=== PATIENT | female | born 1995 ===

== ENCOUNTER 2016-07-09 20:54 | Emergency (ER) | payer SELFPAY ==
[2016-07-09 20:54] VITALS: BMI 21.2
[2016-07-09 21:34] VITALS: O2SAT 100
[2016-07-09] MEDS ORDERED: Sodium Chloride 0.9% 1,000 ML IV ONE (22:25)
[2016-07-09 23:02] LABS: BASO # 0.1 K/uL (0.0-0.2); BASO % 0.5 % (0.0-2.0); EOS # 0.1 K/uL (0.0-0.7); EOS % 0.8 % (0.0-4.0); HEMATOCRIT 40.3 % (34.0-47.0); LYMPH # 3.1 K/uL (1.0-4.3); LYMPH % 25.1 % (20.0-40.0); MEAN CORPUSCULAR HEMOGLOBIN 25.5 pg (27.0-31.0); MEAN CORPUSCULAR HGB CONC 32.3 g/dL (33.0-37.0); MEAN PLATELET VOLUME 8.4 fL (7.2-11.7); MONO # 0.7 K/uL (0.0-0.8); MONO % 5.6 % (0.0-10.0); RED CELL DISTRIBUTION WIDTH 13.9 % (11.5-14.5); WHITE BLOOD COUNT 12.3 K/uL (4.8-10.8)
[2016-07-09 23:05] LABS: RBC URINE 12 /hpf (0-3); URINE BACTERIA OCC (<OCC); URINE BILIRUBIN NEGATIVE (NEGATIVE); URINE BLOOD 1+ (NEGATIVE); URINE COLOR Yellow (YELLOW); URINE GLUCOSE (UA) NORMAL (Normal); URINE KETONE 1+ mg/dL (NEGATIVE); URINE LEUKOCYTE ESTERASE NEG Leu/uL (Negative); URINE PROTEIN NEGATIVE (NEGATIVE); WBC URINE 2 /hpf (0-5)
[2016-07-09 23:06] LABS: MEAN CELL VOLUME 78.9 fL (81.0-99.0)
[2016-07-09 23:08] LABS: CHLORIDE 99 mmol/L (98-107)
[2016-07-09 23:09] LABS: POTASSIUM 3.7 mmol/L (3.6-5.2); SODIUM 138 mmol/L (132-148)
[2016-07-09 23:11] LABS: AST/SGOT 23 U/L (14-36); BILIRUBIN,TOTAL 0.4 mg/dL (0.2-1.3); CARBON DIOXIDE 21 mmol/L (22-30); GFR AFRICAN-AMERICAN > 60
[2016-07-09 23:12] LABS: ALB/GLOB RATIO 1.4 (1.0-2.1); ALKALINE PHOSPHATASE 64 U/L (38-126); ALT/SGPT 27 U/L (9-52); BLOOD UREA NITROGEN 13 mg/dL (7-17); GLUCOSE,RANDOM 80 mg/dL (65-105); TOTAL PROTEIN 8.1 g/dL (6.3-8.3)
--- NOTE | 2016-07-10 02:57 | US ---
EXAM: US Pelvis Complete, Transabdominal. US Pelvis, Transvaginal. CLINICAL HISTORY: 21 years old, female; Signs and symptoms; Other: Bleeding; ; Additional info: Pain/bleeding, R/O ectopic TECHNIQUE: Real-time transabdominal and transvaginal pelvic ultrasound (complete) with image documentation. Transvaginal imaging was used for better evaluation of the endometrium and adnexa. EXAM DATE/TIME: 07/09/2016 11:05 PM COMPARISON: No relevant prior studies available. FINDINGS: Uterus: Measures 7.6 x 4.0 x 4.5 cm. No intrauterine gestation is seen. Endometrial stripe measures 1.3 cm in thickness, within normal limits, and does not appear significantly heterogeneous. Cervix appears closed. Right ovary: Within normal limits in appearance. Measures 2.7 x 2.1 x 2.2 cm. Flow seen in the right ovary on color and Doppler imaging. Left ovary: Measures 4.6 x 2.1 x 2.7 cm. Contains a 2.1 x 1.5 cm complex cystic lesion. This lesion has a thick wall, a crenulated appearance, and increased peripheral blood flow on color imaging. It most likely represents a corpus luteal cyst, given its appearance. Flow seen in the left ovary on color and Doppler imaging. Cul-de-sac: Tiny amount of free fluid is identified. IMPRESSION: No intrauterine gestation seen. Tiny amount of free fluid in the cul-de-sac. The patient's quantitative beta-hCG level is reportedly 353. Findings could represent a spontaneous or a not yet visible (less than 4 week) intrauterine gestation. Note that an ectopic gestation is not excluded entirely in this patient, however. Recommend clinical correlation and close clinical followup, including serial beta-hCG levels. See above for remaining findings.
--- NOTE | 2016-07-10 03:18 | C.PDOC ---
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 History/Exam Limitations: language barrier Onset/Duration Of Symptoms: Days (few) Current Symptoms Are (Timing): Still Present Severity: Moderate Location Of Pain/Discomfort: Epigastric, Suprapubic Quality Of Discomfort: Cramping, "Pain" Alleviating Factors: None Additional History Per: Prior Records Abnormal Vaginal Bleeding: Yes Past Medical History Reviewed: Historical Data, Nursing Documentation, Vital Signs Vital Signs: Last Vital Signs Temp 97.9 F 07/09/16 21:28 Pulse 78 07/09/16 21:28 Resp 18 07/09/16 21:28 BP 108/69 07/09/16 21:28 Pulse Ox 100 07/09/16 21:28 - Medical History PMH: No Chronic Diseases Surgical History: No Surg Hx Family History: States: Unknown Family Hx - Social History Hx Tobacco Use: No Hx Alcohol Use: No Hx Substance Use: Yes - Immunization History Hx Tetanus Toxoid Vaccination: No Hx Influenza Vaccination: No Hx Pneumococcal Vaccination: No Review Of Systems Except As Marked, All Systems Reviewed And Found Negative. Constitutional: Negative for: Fever, Weakness Cardiovascular: Negative for: Chest Pain Respiratory: Negative for: Shortness of Breath Gastrointestinal: Positive for: Abdominal Pain Genitourinary: Positive for: Vaginal Bleeding (spotting), Pelvic Pain. Negative for: Dysuria Musculoskeletal: Negative for: Neck Pain, Back Pain Skin: Negative for: Rash Neurological: Negative for: Weakness, Numbness, Seizures, Altered Mental Status Physical Exam - Physical Exam Appears: Non-toxic, No Acute Distress Skin: Normal Color, Warm, Dry, No Rash Head: Atraumatic, Normacephalic Eye(s): bilateral: PERRL, EOMI Neck: Normal ROM, Supple Cardiovascular: Rhythm Regular Respiratory: Normal Breath Sounds, No Accessory Muscle Use Gastrointestinal/Abdominal: Soft, Tenderness (mild epigastric and suprapubic), No Guarding, No Rebound Back: No CVA Tenderness Extremity: Normal ROM Neurological/Psych: Oriented x3, Normal Motor, Normal Sensation ED Course And Treatment - Laboratory Results Result Diagrams: 07/09/16 22:50 07/09/16 22:50 Urine POC: Positive O2 Sat by Pulse Oximetry: 100 Pulse Ox Interpretation: Normal - CT Scan/US Pelvic US Other Rad Studies (CT/US): Read By Radiologist, Radiology Report Reviewed CT/US Interpretation: IMPRESSION: No intrauterine gestation seen. . Tiny amount of free fluid in the cul-de-sac. . The patient's quantitative beta-hCG level is reportedly 353. . Findings could represent a spontaneous or a not yet visible (less. than 4 week) intrauterine gestation. Note that an ectopic gestation is not. excluded entirely in this patient, however. Recommend clinical correlation and. close clinical followup, including serial beta-hCG levels. . See above for remaining findings. Reassessment Condition: Improved Progress - Interventions Interventions:: Observation, Intravenous fluid - Medications Administered Oral: Acetaminophen Intravenous: Antiemetic, H-2 zohra - Data Reviewed Data Reviewed: Lab, Diagnostic imaging, Old records - Patient Status Patient status: Mostly improved - Continuity of Care Discussed patient case with:: Patient, ED Nurse - Patient Plan Patient Plan: Discharge, F/U with PCP Disposition Counseled Patient/Family Regarding: Studies Performed, Diagnosis, Need For Followup - Disposition Disposition: HOME/ ROUTINE Disposition Time: 03:18 Condition: IMPROVED Additional Instructions: Return to the ER in 2 days for a repeat hormone level in order to rule out an ectopic (a very dangerous condition). Return to the ER immediately if you develop dizziness, heavy bleeding, severe pain, worsening of symptoms or if you have any other concerns. Instructions: Abdominal Pain in (ED) Print Language: UZBEK - Clinical Impression Clinical Impression: Abdominal pain during
[2016-07-10 03:51] VITALS: BP 113/68; PULSE 72; RESP 20; TEMP 97.6
== END 2016-07-10 03:51 | disposition home or self-care (01) ==
LOC: C.ER 20:54
DX: O26.899 Other specified pregnancy related conditions, unspecified trimester (principal); R10.13 Epigastric pain; Z3A.00 Weeks of gestation of pregnancy not specified
CPT/HCPCS: 76830; 76856; 80053; 81001; 83690; 84702; 84703; 85025; 86850; 86900; 96361; 96374; 96375; 99284; J2765; J7040

== ENCOUNTER 2016-07-14 20:56 | Emergency (ER) | payer SELFPAY ==
[2016-07-14 20:56] VITALS: BMI 21.2
--- NOTE | 2016-07-14 23:59 | C.PDOC ---
History Of Present Illness 21 y/o female presents to the ED with complains of vaginal bleeding. Pt is 3 weeks . Was seen n ED for same 5 days ago, negative US and low beta- HCG. Pt was seen at clinic 2 days ago, still no detected on US. Pt seen again today at [facility] [place], [place] negative, no labs done. Pt denies and abominal pain , vomiting or any other complaints. Chief Complaint (Nursing): Female Genitourinary History Per: Patient History/Exam Limitations: no limitations Onset/Duration Of Symptoms: Days Current Symptoms Are (Timing): Still Present Quality Of Discomfort: denies: "Pain" Associated Symptoms: denies: Vomiting Alleviating Factors: None Recent travel outside of the [place]: No Abnormal Vaginal Bleeding: Yes : 2 Para: 1 Past Medical History Reviewed: Historical Data, Nursing Documentation, Vital Signs Vital Signs: Last Vital Signs Temp 97.3 F L 07/15/16 02:45 Pulse 82 07/15/16 02:45 Resp 16 07/15/16 02:45 BP 133/69 07/15/16 02:45 Pulse Ox 98 07/15/16 03:35 Family History: States: Unknown Family Hx - Social History Hx Tobacco Use: No Hx Alcohol Use: No Hx Substance Use: No - Immunization History Hx Tetanus Toxoid Vaccination: No Hx Influenza Vaccination: No Hx Pneumococcal Vaccination: No Review Of Systems Except As Marked, All Systems Reviewed And Found Negative. Constitutional: Negative for: Fever Gastrointestinal: Negative for: Vomiting, Abdominal Pain Genitourinary: Positive for: Vaginal Bleeding Physical Exam - Physical Exam Appears: Non-toxic, No Acute Distress Skin: Warm, Dry, No Rash Head: Atraumatic, Normacephalic Chest: Symmetrical Cardiovascular: Rhythm Regular Respiratory: Normal Breath Sounds, No Rales, No Rhonchi, No Wheezing Gastrointestinal/Abdominal: Normal Exam, Soft, No Tenderness Extremity: Bilateral: Atraumatic Neurological/Psych: Oriented x3, Normal Speech ED Course And Treatment O2 Sat by Pulse Oximetry: 98 (on room air) Pulse Ox Interpretation: Normal - CT Scan/US US transvag Other Rad Studies (CT/US): Read By Radiologist, Radiology Report Reviewed CT/US Interpretation: EXAM: US , Transvaginal. CLINICAL HISTORY: 21 years old, female; Signs and symptoms; Other: Vag bleeding; ; Additional info: Vaginal. bleed. TECHNIQUE: Real-time transvaginal obstetrical ultrasound of the maternal pelvis and a first trimester . with image documentation. Transvaginal imaging was used for better evaluation of the fetus and. adnexa. COMPARISON: PELVIS/TRANSVAG US 07/10/2016 2:05:15 AM. FINDINGS: Gestation: See below. Uterus/cervix: Two tiny cystic structures about endometrium, 0.1 cm in size. Closed cervix. Ovaries: RIGHT ovary: Normal. LEFT ovary: Probable corpus luteal cyst. No adnexal masses. Free fluid: Small free fluid within pelvis. IMPRESSION: 1. Tiny cystic structures about endometrium, nonspecific. Recommend short-term followup. 2. Incidental/non-acute findings are described above. Thank you for allowing us to participate in the care of your patient. Dictated and Authenticated by: Vernon Goldstein MD. 07/15/2016 3:02 AM Eastern Time ([place] & [place]). Addendum created by Vernon Goldstein MD on 07/15/2016 3:29 AM Eastern Time ([place] & [place]). FINDINGS: Uterus/cervix: Two tiny cystic structures about endometrium, 0.1 cm in size, not visualized on. previous examination. Closed cervix. IMPRESSION: 1. Tiny cystic structures about endometrium, new in interval, nonspecific. DDX: Early intrauterine. gestation, blighted ovum, ectopic . Recommend short-term followup. 2. Incidental/non-acute findings are described above. Initial Report created on 07/15/2016 3:02 AM Eastern Time ([place] & [place]) Medical Decision Making Medical Decision Making: Plan: repeat beta-HCG Disposition Counseled Patient/Family Regarding: Diagnosis - Disposition Referrals: [facility] at [facility] [place] [Outside] Disposition: HOME/ ROUTINE Disposition Time: 03:45 Condition: STABLE Instructions: (ED), Threatened Miscarriage (ED) - POA Present On Arrival: None - Clinical Impression Clinical Impression: Threatened , Bleeding in early - Scribe Statement The provider has reviewed the documentation as recorded by the Kurt Kirk Provider Attestation: All medical record entries made by the Dgibkamille were at my direction and personally dictated by me. I have reviewed the chart and agree that the record accurately reflects my personal performance of the history, physical exam, medical decision making, and the department course for this patient. I have also personally directed, reviewed, and agree with the discharge instructions and disposition.
--- NOTE | 2016-07-15 03:02 | US ---
EXAM: US , Transvaginal. CLINICAL HISTORY: 21 years old, female; Signs and symptoms; Other: Vag bleeding; ; Additional info: Vaginal bleed TECHNIQUE: Real-time transvaginal obstetrical ultrasound of the maternal pelvis and a first trimester with image documentation. Transvaginal imaging was used for better evaluation of the fetus and adnexa. COMPARISON: PELVIS/TRANSVAG US 07/10/2016 2:05:15 AM FINDINGS: Gestation: See below. Uterus/cervix: Two tiny cystic structures about endometrium, 0.1 cm in size. Closed cervix. Ovaries: RIGHT ovary: Normal. LEFT ovary: Probable corpus luteal cyst. No adnexal masses. Free fluid: Small free fluid within pelvis. IMPRESSION: 1. Tiny cystic structures about endometrium, nonspecific. Recommend short-term followup. 2. Incidental/non-acute findings are described above.
[2016-07-15 03:51] VITALS: BP 101/69; PULSE 66; RESP 17; TEMP 98; O2SAT 100
== END 2016-07-15 04:01 | disposition home or self-care (01) ==
LOC: C.ER 20:56
DX: O20.0 Threatened abortion (principal); Z3A.12 12 weeks gestation of pregnancy

== ENCOUNTER 2016-07-21 22:20 | Emergency (ER) | payer SELFPAY | END 2016-07-22 01:35 | disposition home or self-care (01) | LOC: C.ER 22:20 | DX: O20.0 Threatened abortion (principal); Z3A.01 Less than 8 weeks gestation of pregnancy ==

== ENCOUNTER 2016-07-23 17:56 | Emergency (ER) | payer SELFPAY ==
[2016-07-23 17:56] VITALS: BMI 21.2
[2016-07-23 18:05] VITALS: TEMP 98.3; O2SAT 99
--- NOTE | 2016-07-23 19:27 | C.PDOC ---
Time Seen by Provider: 07/23/16 19:27 Chief Complaint (Nursing): Medical Clearance Past Medical History Vital Signs: Last Vital Signs Temp 98.3 F 07/23/16 17:59 Pulse 73 07/23/16 17:59 Resp 20 07/23/16 17:59 BP 96/54 L 07/23/16 17:59 Pulse Ox 99 07/23/16 17:59 Family History: States: Unknown Family Hx - Social History Hx Tobacco Use: No Hx Alcohol Use: No Hx Substance Use: No - Immunization History Hx Tetanus Toxoid Vaccination: No Hx Influenza Vaccination: No Hx Pneumococcal Vaccination: No ED Course And Treatment O2 Sat by Pulse Oximetry: 99 Disposition Counseled Patient/Family Regarding: Studies Performed, Diagnosis - Disposition Disposition Time: 19:27
--- NOTE | 2016-07-23 19:27 | C.PDOC ---
History Of Present Illness 21 y/o female, , went to [facility] and could not hear heart and sent to ER for emergency ultrasound. Patient denies fever, chills, nausea, vomiting, vaginal bleeding. Time Seen by Provider: 07/23/16 19:27 Chief Complaint (Nursing): Medical Clearance History Per: Patient History/Exam Limitations: no limitations Onset/Duration Of Symptoms: Days Current Symptoms Are (Timing): Still Present Quality Of Discomfort: Cramping Associated Symptoms: denies: Fever, Chills, Nausea, Vomiting, Diarrhea Recent travel outside of the [place]: No Abnormal Vaginal Bleeding: No : 2 Para: 1 Miscarriage: 0 Past Medical History Reviewed: Historical Data, Nursing Documentation, Vital Signs Vital Signs: Last Vital Signs Temp 98.3 F 07/23/16 17:59 Pulse 73 07/23/16 17:59 Resp 20 07/23/16 17:59 BP 96/54 L 07/23/16 17:59 Pulse Ox 99 07/23/16 19:57 - Medical History PMH: No Chronic Diseases Family History: States: Unknown Family Hx - Social History Hx Tobacco Use: No Hx Alcohol Use: No Hx Substance Use: No - Immunization History Hx Tetanus Toxoid Vaccination: No Hx Influenza Vaccination: No Hx Pneumococcal Vaccination: No Review Of Systems Constitutional: Negative for: Fever, Chills Respiratory: Negative for: Cough, Shortness of Breath Gastrointestinal: Positive for: Abdominal Pain. Negative for: Nausea, Vomiting Genitourinary: Negative for: Vaginal Bleeding Physical Exam - Physical Exam Appears: Non-toxic, No Acute Distress Skin: Warm, Dry Oral Mucosa: Moist Chest: Symmetrical Cardiovascular: Rhythm Regular, No Murmur Respiratory: No Rales, No Rhonchi, No Wheezing Gastrointestinal/Abdominal: Soft, Tenderness (mild, suprapubic), No Distention, No Guarding, No Rebound Back: No CVA Tenderness Extremity: Normal ROM, Capillary Refill (< 2 sec. ) Neurological/Psych: Oriented x3, Normal Speech, Normal Cognition ED Course And Treatment - Laboratory Results Result Diagrams: 07/23/16 19:52 07/23/16 19:52 O2 Sat by Pulse Oximetry: 99 (RA) Pulse Ox Interpretation: Normal Progress Note: Labs, ultrasound, IVFs. Reevaluation Time: 20:44 Reassessment Condition: Improved Medical Decision Making Medical Decision Making: Upon provider reevaluation patient is feeling better, is medically stable, and requires no further treatment in the ED at this time. Patient will be discharged home . Counseling was provided and all questions were answered regarding diagnosis and need for follow up with Cris. There is agreement to discharge plan. Return if symptoms persist or worsen. Disposition Counseled Patient/Family Regarding: Studies Performed, Diagnosis, Need For Followup - Disposition Referrals: Anna Lynch MD [Medical Doctor] - Disposition: HOME/ ROUTINE Disposition Time: 19:27 Condition: FAIR Additional Instructions: Please recheck HCG in 5-7 days Instructions: (ED) - Clinical Impression Clinical Impression: Medical assessment, - Scribe Statement The provider has reviewed the documentation as recorded by the Kurt Avilez Provider Attestation: Provider Scribe Attestation: All medical record entries made by the Scribe were at my direction and personally dictated by me. I have reviewed the chart and agree that the record accurately reflects my personal performance of the history, physical exam, medical decision making, and the department course for this patient. I have also personally directed, reviewed, and agree with the discharge instructions and disposition.
[2016-07-23] MEDS ORDERED: Sodium Chloride 0.9% 1,000 ML IV ONE (19:28)
[2016-07-23] MEDS ORDERED: Sodium Chloride 0.9% 1,000 ML ONE (19:48)
[2016-07-23 20:02] LABS: BASO # 0.1 K/uL (0.0-0.2); BASO % 0.7 % (0.0-2.0); EOS # 0.1 K/uL (0.0-0.7); EOS % 1.3 % (0.0-4.0); HEMATOCRIT 37.5 % (34.0-47.0); LYMPH # 3.6 K/uL (1.0-4.3); LYMPH % 33.1 % (20.0-40.0); MEAN CELL VOLUME 78.2 fL (81.0-99.0); MEAN CORPUSCULAR HEMOGLOBIN 25.8 pg (27.0-31.0); MEAN CORPUSCULAR HGB CONC 32.9 g/dL (33.0-37.0); MEAN PLATELET VOLUME 8.6 fL (7.2-11.7); MONO # 0.7 K/uL (0.0-0.8); MONO % 6.9 % (0.0-10.0); WHITE BLOOD COUNT 10.7 K/uL (4.8-10.8)
[2016-07-23 20:08] LABS: INR 1.1
[2016-07-23 20:11] LABS: CHLORIDE 98 mmol/L (98-107); SODIUM 138 mmol/L (132-148)
[2016-07-23 20:12] LABS: POTASSIUM 3.8 mmol/L (3.6-5.2)
[2016-07-23 20:14] LABS: ALB/GLOB RATIO 1.6 (1.0-2.1); ALKALINE PHOSPHATASE 49 U/L (38-126); ALT/SGPT 24 U/L (9-52); AST/SGOT 26 U/L (14-36); BILIRUBIN,TOTAL 0.4 mg/dL (0.2-1.3); BLOOD UREA NITROGEN 9 mg/dL (7-17); CARBON DIOXIDE 24 mmol/L (22-30); GFR AFRICAN-AMERICAN > 60; GLUCOSE,RANDOM 90 mg/dL (65-105); TOTAL PROTEIN 7.3 g/dL (6.3-8.3)
[2016-07-23 20:15] LABS: CALCIUM 8.9 mg/dl (8.6-10.4)
[2016-07-23 20:16] LABS: RBC URINE < 1 /hpf (0-3); URINE BACTERIA RARE (<OCC); URINE BILIRUBIN NEGATIVE (NEGATIVE); URINE BLOOD NEGATIVE (NEGATIVE); URINE COLOR Yellow (YELLOW); URINE GLUCOSE (UA) NORMAL (Normal); URINE KETONE NEGATIVE (NEGATIVE); URINE LEUKOCYTE ESTERASE NEG Leu/uL (Negative); URINE PROTEIN NEGATIVE (NEGATIVE); URINE UROBILINOGEN NORMAL mg/dL (0.2-1.0); WBC URINE 1 /hpf (0-5)
--- NOTE | 2016-07-23 20:37 | US ---
EXAM: US , Transvaginal CLINICAL HISTORY: 21 years old, female; Pain; Pelvic pain; ; Additional info: Vag bleed; positive urine test; quantitative beta hCG level is pending Beta hCG 352.87 on 07/09/16 Beta hCG 1143.0 on 07/15/16 TECHNIQUE: Real-time transvaginal obstetrical ultrasound of the maternal pelvis and a first trimester with image documentation. Transvaginal imaging was used for better evaluation of the fetus and adnexa. EXAM DATE/TIME: 07/23/2016 7:28 PM COMPARISON: US - TRANSVAGINAL 07/15/2016 2:07:04 AM FINDINGS: Uterus: Uterus measures approximately 9 x 4 x 5 cm. Cervix measures approximately 3.5 cm in length. Endometrium measures approximately 10 mm in width. Right ovary: Right ovary measures approximately 3.21 x 1.54 x 2.97 cm. There are multiple small follicles. There is expected blood flow on Doppler imaging Left ovary: Left ovary measures approximate 4.2 x 1.88 x 2.70 cm. There are multiple small follicles. There is expected blood flow on Doppler imaging Adnexa: There are no adnexal masses. There is no free fluid. IMPRESSION: No intrauterine or ectopic gestation identified Correlation with beta hCG levels advised
[2016-07-23 20:55] VITALS: BP 105/65; PULSE 69; RESP 17
== END 2016-07-23 21:03 | disposition home or self-care (01) ==
LOC: C.ER 17:56
DX: O26.891 Other specified pregnancy related conditions, first trimester (principal); Z3A.00 Weeks of gestation of pregnancy not specified
CPT/HCPCS: 76830; 80053; 81001; 84702; 84703; 85025; 85610; 86850; 86900; 96360; 99283; J7040

== ENCOUNTER 2016-07-31 17:41 | Observation (INO) | payer SELFPAY ==
[2016-07-31 17:42] VITALS: BMI 21.2
--- NOTE | 2016-07-31 19:41 | C.PDOC ---
History Of Present Illness 21 year old female presents to the ED with complaints of passing a dark blood clot. She has had multiple visits for and vaginal bleeding. Patient was seen on 07/09/16 with various Beta HCG Quants including 352.87, 1143.00 (), 2991.50 (07/21/16), 2763.90 (07/23/16). Patient denies any pain, nausea , vomiting, or any further bleeding. Time Seen by Provider: 07/31/16 18:07 Chief Complaint (Nursing): Female Genitourinary History/Exam Limitations: no limitations Onset/Duration Of Symptoms: Hrs Associated Symptoms: denies: Fever, Chills Past Medical History Reviewed: Historical Data, Nursing Documentation, Vital Signs Vital Signs: Last Vital Signs Temp 98.2 F 07/31/16 21:18 Pulse 67 07/31/16 21:18 Resp 18 07/31/16 21:18 BP 104/64 07/31/16 21:18 Pulse Ox 99 07/31/16 21:18 - Medical History PMH: No Chronic Diseases Surgical History: No Surg Hx Family History: States: Unknown Family Hx - Social History Hx Tobacco Use: No Hx Alcohol Use: No Hx Substance Use: No Review Of Systems Constitutional: Negative for: Fever, Chills, Sweats Cardiovascular: Negative for: Chest Pain Respiratory: Negative for: Cough, Shortness of Breath Gastrointestinal: Negative for: Nausea, Vomiting, Abdominal Pain, Diarrhea Genitourinary: Positive for: Hematuria (passed a dark blood clot ) Physical Exam - Physical Exam Appears: Non-toxic, No Acute Distress Skin: Warm, Dry Chest: Symmetrical, No Deformity Cardiovascular: Rhythm Regular, No Murmur Respiratory: No Accessory Muscle Use, No Rales, No Rhonchi, No Wheezing Gastrointestinal/Abdominal: Soft, No Tenderness, No Distention, No Guarding Extremity: Normal ROM, No Pedal Edema Neurological/Psych: Oriented x3, Normal Speech, Normal Cognition ED Course And Treatment O2 Sat by Pulse Oximetry: 100 - CT Scan/US US TRANSVAGINAL NON-OB Other Rad Studies (CT/US): Interpreted By Me, Read By Radiologist CT/US Interpretation: IMPRESSION: No intrauterine . Complex structure within the left ovary, either representing corpus. luteum cyst or ectopic . Consider serial hCG follow-up and repeat ultrasound in one or 2 weeks for more definitive. assessment. Progress Note: Beta quant ordered Medical Decision Making Medical Decision Making: Pt asymptomatic however quant continues to rise US ordered to look for the ectopic after discussion with pt US (+) for "complex cyst" lt ovary Case discussed with dr Loco, who reviewed the US and evaluated pt in the Ed Plan to OR Disposition Counseled Patient/Family Regarding: Studies Performed, Diagnosis - Disposition Disposition: HOSPITALIZED Disposition Time: 10:30 Condition: GOOD - Clinical Impression Clinical Impression: Ectopic of ovary - Scribe Statement The provider has reviewed the documentation as recorded by the Scribe Iris Almanza All medical record entries made by the Scribe were at my direction and personally dictated by me. I have reviewed the chart and agree that the record accurately reflects my personal performance of the history, physical exam, medical decision making, and the department course for this patient. I have also personally directed, reviewed, and agree with the discharge instructions and disposition. Decision To Admit - Pt Status Changed To: Hospital Disposition Of: Observation - . 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
[2016-07-31 22:56] LABS: RBC URINE < 1 /hpf (0-3); URINE BACTERIA RARE (<OCC); URINE BILIRUBIN NEGATIVE (NEGATIVE); URINE BLOOD NEGATIVE (NEGATIVE); URINE COLOR Straw (YELLOW); URINE GLUCOSE (UA) NORMAL (Normal); URINE KETONE NEGATIVE (NEGATIVE); URINE LEUKOCYTE ESTERASE NEG Leu/uL (Negative); URINE PROTEIN NEGATIVE (NEGATIVE); URINE UROBILINOGEN NORMAL mg/dL (0.2-1.0); WBC URINE < 1 /hpf (0-5)
--- NOTE | 2016-07-31 23:12 | CP.PCM.CON ---
History of Present Illness - History of Present Illness History of Present Illness: 21 year old LMP 05/28/16 complains of vaginal bleeding 07/09/16 and was evaluated in ED with positive test. Serial BHCG showed inapproprite rise . Tonoght BHCG 5,000 with empty uterus. P1 with 1 previous C/Section. Review of Systems - Gastrointestinal Gastrointestinal: As Per HPI - Reproductive: Female Reproductive:Female: As Per HPI - Menstruation Menstruation: As Per HPI Past Patient History - Infectious Disease Hx of Infectious Diseases: None - Past Social History Smoking Status: Never Smoked - PSYCHIATRIC Hx Substance Use: No - SURGICAL HISTORY Hx Surgeries: Yes Hx Section: Yes (x1) - ANESTHESIA Hx Anesthesia: Yes Hx Anesthesia Reactions: No Meds Allergies/Adverse Reactions: Allergies Allergy/AdvReac Type Severity Reaction Status Date / Time No Known Allergies Allergy Verified 07/31/16 17:59 Physical Exam - Constitutional Appears: Well - Respiratory Exam Respiratory Exam: Clear to Auscultation Bilateral, NORMAL BREATHING PATTERN - Cardiovascular Exam Cardiovascular Exam: REGULAR RHYTHM - GI/Abdominal Exam GI & Abdominal Exam: Normal Bowel Sounds - Exam Bimanual exam: NORMAL BIMANUAL EXAM Results - Vital Signs Recent Vital Signs: Last Vital Signs Temp 98.2 F 07/31/16 21:18 Pulse 67 07/31/16 21:18 Resp 18 07/31/16 21:18 BP 104/64 07/31/16 21:18 Pulse Ox 99 07/31/16 21:18 - Labs Labs: Laboratory Results - last 24 hr 07/31/16 07/31/16 18:37 22:49 Beta HCG, Quant 5078.30 Urine Color Straw Urine Clarity Clear Urine pH 6.0 Ur Specific [place] 1.009 Urine Protein Negative Urine Glucose (UA) Normal Urine Ketones Negative Urine Blood Negative Urine Nitrate Negative Urine Bilirubin Negative Urine Urobilinogen Normal Ur Leukocyte Esterase Neg Urine WBC (Auto) < 1 Urine RBC (Auto) < 1 Ur Squamous Epith Cells 1 Urine Bacteria Rare Assessment & Plan - Assessment and Plan (Free Text) Assessment: Ectopic . Plan: Option of surgical vrs medical management of Ectopic given . Patient opts for Surgical Management. Will perform Laparoscopic Salpingectomy, possible Laparotomy. Risks of injuries to bowel, bladder and bleeding and infection given. - Date & Time Date: 07/31/16 Time: 23:19
[2016-07-31 23:40] LABS: BASO # 0.1 K/uL (0.0-0.2); BASO % 0.6 % (0.0-2.0); EOS # 0.1 K/uL (0.0-0.7); EOS % 1.1 % (0.0-4.0); HEMATOCRIT 40.6 % (34.0-47.0); LYMPH % 32.5 % (20.0-40.0); MEAN CORPUSCULAR HEMOGLOBIN 25.3 pg (27.0-31.0); MEAN CORPUSCULAR HGB CONC 32.1 g/dL (33.0-37.0); MEAN PLATELET VOLUME 8.4 fL (7.2-11.7); MONO # 0.6 K/uL (0.0-0.8); MONO % 5.1 % (0.0-10.0); WHITE BLOOD COUNT 12.2 K/uL (4.8-10.8)
[2016-07-31 23:59] LABS: CHLORIDE 100 mmol/L (98-107); SODIUM 138 mmol/L (132-148)
[2016-08-01 00:01] LABS: ALB/GLOB RATIO 1.5 (1.0-2.1); ALKALINE PHOSPHATASE 58 U/L (38-126); AST/SGOT 52 U/L (14-36); BILIRUBIN,TOTAL 0.9 mg/dL (0.2-1.3); CARBON DIOXIDE 23 mmol/L (22-30); GFR AFRICAN-AMERICAN > 60; TOTAL PROTEIN 8.2 g/dL (6.3-8.3)
[2016-08-01 00:02] LABS: ALT/SGPT 55 U/L (9-52); BLOOD UREA NITROGEN 9 mg/dL (7-17); GLUCOSE,RANDOM 90 mg/dL (65-105)
[2016-08-01 00:04] LABS: POTASSIUM 4.5 mmol/L (3.6-5.2)
[2016-08-01] MEDS ORDERED: Bupivacaine HCl 0.5% PF (10 ml) Inj ONE (00:43)
[2016-08-01] MEDS ORDERED: Lactated Ringer's 1,000 ML IV ONE ×2 (00:45→01:45)
[2016-08-01] MEDS: cefOXitin IV 1 gm in Dextrose 50 ML IVPB ONE ×2 (00:55→01:05)
[2016-08-01] MEDS ORDERED: Oxycodone/Acetaminophen 5/325 mg Tab PO PRN (02:14)
[2016-08-01] MEDS ORDERED: Lactated Ringer's 1,000 ML IV SCH (02:30)
--- NOTE | 2016-08-01 02:34 | PCM.SURG1 ---
Surgeon's Initial Post Op Note - Surgeon's Notes Surgeon: Beronica Radiography Technician: Skip Type of Anesthesia: General Endo Pre-Operative Diagnosis: Ectopic Operative Findings: Left Tubal Post-Operative Diagnosis: Left Tubal Operation Performed: Laparoscopic Left Salpingectomy Specimen/Specimens Removed: Left Fallopian Tube and Estimated Blood Loss: EBL {In ML}: 10 Blood Products Given: N/A Drains Used: No Drains Post-Op Condition: Good Date of Surgery/Procedure: 08/01/16 Time of Surgery/Procedure: 01:40
[2016-08-01 03:15] VITALS: BP 105/62; PULSE 74; RESP 20; TEMP 97.2; O2SAT 100
--- NOTE | 2016-08-01 10:22 | CP.PCM.PN ---
Subjective - Date & Time of Evaluation Date of Evaluation: 08/01/16 Time of Evaluation: 10:19 - Subjective Subjective: Complains of nausea. No abdominal pain Objective - Vital Signs/Intake and Output Vital Signs (last 24 hours): Temp Pulse Resp BP Pulse Ox 97.2 F L 74 20 105/62 100 08/01/16 03:14 08/01/16 03:14 08/01/16 03:14 08/01/16 03:14 08/01/16 03:14 Intake and Output: 08/01/16 08/01/16 06:59 18:59 Output Total 100 Balance -100 - Medications Medications: Current Medications Lactated Ringer's (Lactated Ringer's) 1,000 mls @ 125 mls/hr IV .Q8H AG Last Admin: 08/01/16 06:02 Dose: 125 mls/hr Ondansetron HCl (Zofran Inj) 4 mg IVP ONCE PRN PRN Reason: Nausea/Vomiting Last Admin: 08/01/16 09:24 Dose: 4 mg Oxycodone/Acetaminophen (Percocet 5/325 Mg Tab) 1 tab PO Q4H PRN PRN Reason: Pain, severe (8-10) Stop: 08/04/16 02:15 - Labs Labs: 08/01/16 00:02 - Respiratory Exam Respiratory Exam: NORMAL BREATHING PATTERN - Cardiovascular Exam Cardiovascular Exam: REGULAR RHYTHM - GI/Abdominal Exam GI & Abdominal Exam: Normal Bowel Sounds Additional comments: No tenderness. Incision C/D/I Assessment and Plan - Assessment and Plan (Free Text) Assessment: Stable. Plan: Discharge home. Zofran for nausea. Follow up in clinic in 2 weeks.
--- NOTE | 2016-08-01 10:49 | US ---
Indication: Empty uterus but quantitative beta HCG is rising Comparison: Transvaginal pelvic ultrasound performed 07/23/16 Technique: Transvaginal pelvic ultrasound. Findings: Uterus measures approximately 8.6 x 4.1 x 4.9 cm. Anteverted. Endometrial thickness measures approximately 1.2 cm. No evidence of intrauterine gestational sac. Cervix length measures approximately 3 cm. Right ovary measures approximately 2.7 x 2.0 x 1.9 cm. Blood flow is demonstrated. The left ovary measures approximately 3.1 x 2.2 x 1.8 cm. Blood flow is demonstrated. 1.3 x 0.6 x 0.6 cm complex thick-walled structure measures approximately 1.8 cm with ring of fire configuration, possibly corpus luteal cyst. Please note that the presence of an ectopic cannot be excluded with a positive beta HCG in the absence of an intrauterine . Impression: No intrauterine gestational sac. Complex structure appears within the left ovary. If indeed the patient is based on serum beta HCG values, the sonographic findings represent either: Very early IUP; embryonic demise; ectopic gestation. Follow-up with serial quantitative serum beta HCG measurements and post OBGYN follow-up is mandatory, since ectopic gestation cannot be excluded based only on sonographic findings. Preliminary impression was provided by virtual radiologic.
--- NOTE | 2016-08-02 07:56 | OP ---
PROCEDURE DATE: 08/01/2016 PREOPERATIVE DIAGNOSIS: Ectopic . POSTOPERATIVE DIAGNOSIS: Left tubal . SURGEON: Slim Loco MD SKATE HOP: Dr. Valdivia, who was needed for assistance in exposing the operative field and was present throughout the entire procedure. ANESTHESIA: General, given by Dr. St. FINDINGS: Left tubal . Normal ovaries, normal right fallopian tube, normal uterus. Minimal pelvic adhesions. DESCRIPTION OF PROCEDURE: Under adequate general anesthesia, the patient was placed in the lithotomy position. The abdomen, perineum, and vagina were prepped and draped in the usual sterile fashion. An indwelling Tabor catheter was placed into the bladder for continuous bladder drainage throughout the procedure. The cervix was then exposed using a bivalved speculum. The anterior lip of the cervix was grasped with a single tooth tenaculum. The uterus was sounded to 9 cm. The HUMI manipulator was then inserted into the uterus and insufflated with air. The speculum and tenaculum were removed. Attention was then turned to the abdomen. A 5 mm incision was made in the umbilicus. A Veress needle was then inserted and a pneumoperitoneum was created. A 5 mm trocar and cannula were then inserted into the abdomen. A 5 mm laparoscope was inserted and the abdomen was inspected. The findings above were noted. Another 5 mm incision was made in the left lower quadrant and another 12 mm trocar incision was made in the right lower quadrant. A 5 mm trocar and cannula were inserted through the left lower quadrant incision and a 12 mm trocar and cannula inserted through the right lower quadrant incision. The left fallopian tube with ectopic was elevated with a grasper. Using the LigaSure, the proximal section of the left fallopian tube was coagulated and transected. The mesosalpinx was sequentially coagulated and transected. The specimen was then removed. An EndoCatch was then inserted through the 12 mm cannula. The specimen was placed in the bag and removed. The pelvis was then irrigated and suctioned. Hemostasis was noted. The right lower quadrant incision was then closed in layers with 0 Vicryl suture to the fascia. The skin was approximated with 4-0 Biosyn suture. The left lower quadrant incision was approximated with 0 Biosyn skin sutures. The umbilical incision was approximated with 4-0 Biosyn skin sutures. Dressings were applied. The Tabor and HUMI were removed in the operating room. The specimen was left fallopian tube with ectopic to pathology. The patient was extubated in the operating room. Blood loss was about 10 mL. The patient was transferred from the operating room to the recovery room in good condition. Slim Loco MD cc: [id number] TT: 08/02/2016 07:55:11 mn [id number]
== END 2016-08-01 13:15 | disposition home or self-care (01) ==
LOC: C.ER 17:41 → C.4M 23:42
PROVIDERS: ADMIT Obstetrics & Gynecology; ATTEND Obstetrics & Gynecology
DX: O00.10 Tubal pregnancy without intrauterine pregnancy (principal)
CPT/HCPCS: 36415; 59151; 76830; 80053; 81001; 82948; 84702; 85025; 86850; 86900; G0378; J0694; J1170; J2405; J7120

== ENCOUNTER 2016-12-10 19:22 | Emergency (ER) | payer SELFPAY ==
[2016-12-10 19:22] VITALS: BMI 21.2
[2016-12-10] MEDS ORDERED: Naproxen 550 mg Tab PO STA (20:07)
--- NOTE | 2016-12-10 20:12 | C.PDOC ---
History Of Present Illness 21 yr old female presents to the ER with complaints of pain to the left side of scalp for the past 2-3 days. Patient reports history of a fall with head injury 1 year ago. Patient states she developed a lump to the area 4 months ago and is concerned the lump might be due to the fall. Patient denies LOC, fever, vision changes, chest pain, SOB, nausea, vomiting, neck pain, back pain, weakness or numbness. Time Seen by Provider: 12/10/16 19:45 Chief Complaint (Nursing): Headache History Per: Patient History/Exam Limitations: no limitations Onset/Duration Of Symptoms: Days Past Medical History Reviewed: Historical Data, Nursing Documentation, Vital Signs Vital Signs: Last Vital Signs Temp 97.7 F 12/10/16 20:36 Pulse 58 L 12/10/16 20:36 Resp 18 12/10/16 20:36 BP 92/60 L 12/10/16 20:36 Pulse Ox 97 12/10/16 20:47 Family History: States: No Known Family Hx - Social History Hx Tobacco Use: No Hx Alcohol Use: No Hx Substance Use: No - Immunization History Hx Tetanus Toxoid Vaccination: No Hx Influenza Vaccination: No Hx Pneumococcal Vaccination: No Review Of Systems Except As Marked, All Systems Reviewed And Found Negative. Constitutional: Negative for: Fever Eyes: Negative for: Vision Change Cardiovascular: Negative for: Chest Pain Respiratory: Negative for: Shortness of Breath Gastrointestinal: Negative for: Nausea, Vomiting Musculoskeletal: Negative for: Neck Pain, Back Pain Neurological: Negative for: Weakness, Numbness Physical Exam - Physical Exam Appears: Non-toxic, No Acute Distress Skin: Warm, Dry, Other ((+) 2x2cm area of mild swelling to the left parietal area.) Head: Atraumatic, Normacephalic Eye(s): bilateral: Normal Inspection, PERRL, EOMI Oral Mucosa: Moist Neck: Normal, Normal ROM, Supple Chest: Symmetrical, No Tenderness Cardiovascular: Rhythm Regular, No Murmur Respiratory: Normal Breath Sounds, No Rales, No Rhonchi, No Stridor, No Wheezing Extremity: Normal ROM, No Swelling Neurological/Psych: Oriented x3, Normal Speech, Normal Motor ED Course And Treatment O2 Sat by Pulse Oximetry: 97 (RA ) Pulse Ox Interpretation: Normal Medical Decision Making Medical Decision Making: PLAN: * Naproxen PO * Tylenol PO On re-exam, the patient reports improvement of symptoms. Ambulatory in the ED with steady gait. Lungs are CTA, heart is RRR, abdomen is soft, non-tender and the patient is tolerating. Follow up with the medical doctor within 1-2 days. Return if worsened. Disposition - Disposition Referrals: [facility] at [facility] [Outside] Disposition: HOME/ ROUTINE Disposition Time: 20:29 Condition: GOOD Additional Instructions: Follow up with the medical doctor within 1-2 days. Return if worsened. Prescriptions: Naproxen [Naprosyn] 500 mg PO BID #20 tab traMADol [Ultram] 50 mg PO Q6 PRN #20 tab PRN Reason: Pain Instructions: Acute Headache (DC) Forms: [employer] (Luxembourgish) Print Language: UPPER SORBIAN - Clinical Impression Clinical Impression: Headache - PA / TUB CHUCKER / Resident Statement MD/DO has reviewed & agrees with the documentation as recorded. - Scribe Statement The provider has reviewed the documentation as recorded by the Scribe Elli Hedrick All medical record entries made by the Scribe were at my direction and personally dictated by me. I have reviewed the chart and agree that the record accurately reflects my personal performance of the history, physical exam, medical decision making, and the department course for this patient. I have also personally directed, reviewed, and agree with the discharge instructions and disposition.
[2016-12-10] MEDS ORDERED: Naproxen 550 mg Tab PO ONE (20:18)
[2016-12-10 20:37] VITALS: BP 92/60; PULSE 58; RESP 18; TEMP 97.7
[2016-12-10 20:46] VITALS: O2SAT 97
== END 2016-12-10 20:46 | disposition home or self-care (01) ==
LOC: C.ER 19:22
DX: R51 Headache (principal)

== ENCOUNTER 2017-07-12 18:25 | Emergency (ER) | payer SELFPAY ==
[2017-07-12 18:25] VITALS: BMI 21.2
[2017-07-12 18:38] VITALS: BP 122/71; PULSE 71; RESP 20; TEMP 98.2; O2SAT 100
--- NOTE | 2017-07-12 20:32 | C.PDOC ---
History Of Present Illness 22 y/o female presents to the ED for evaluation of pain to low back, onset today. Patient reports she was standing at work and felt a pop in the lower back. Denies any fall or abrupt movements prior to onset of pain. Pain is radiating to the bilateral lower extremities, greater on the left. Denies any fever, chills, hematuria, dysuria, incontinence, weakness, or numbness. Time Seen by Provider: 07/12/17 19:35 Chief Complaint (Nursing): Back Pain History Per: Patient History/Exam Limitations: no limitations Onset/Duration Of Symptoms: Days (x1) Current Symptoms Are (Timing): Still Present Past Medical History Reviewed: Historical Data, Nursing Documentation, Vital Signs Vital Signs: Last Vital Signs Temp 98.2 F 07/12/17 18:36 Pulse 71 07/12/17 18:36 Resp 20 07/12/17 18:36 BP 122/71 07/12/17 18:36 Pulse Ox 100 07/12/17 20:47 - Medical History PMH: No Chronic Diseases Surgical History: (x2) Family History: States: Unknown Family Hx - Social History Hx Tobacco Use: No Hx Alcohol Use: Yes Hx Substance Use: No - Immunization History Hx Tetanus Toxoid Vaccination: No Hx Influenza Vaccination: No Hx Pneumococcal Vaccination: No Review Of Systems Except As Marked, All Systems Reviewed And Found Negative. Constitutional: Negative for: Fever, Chills Genitourinary: Negative for: Dysuria, Incontinence, Hematuria Musculoskeletal: Positive for: Back Pain Neurological: Negative for: Weakness, Numbness (and tingling) Physical Exam - Physical Exam Appears: Non-toxic, No Acute Distress Skin: Normal Color, Warm, Dry Head: Atraumatic, Normacephalic Eye(s): bilateral: Normal Inspection, PERRL, EOMI Oral Mucosa: Moist Chest: Symmetrical Respiratory: Normal Breath Sounds Gastrointestinal/Abdominal: Soft, No Tenderness, No Distention Back: Vertebral Tenderness (sacral area), Paraspinal Tenderness (to lumbar region), Straight Leg Raising (Left: + straight leg raise at 45 degrees), No Other (erythema or skin mass) Extremity: Normal ROM, No Tenderness Extremity: Bilateral: Atraumatic, Normal Color And Temperature, Normal ROM Neurological/Psych: Oriented x3, Normal Speech, Normal Motor, Normal Sensation Gait: Steady ED Course And Treatment O2 Sat by Pulse Oximetry: 100 (RA) Pulse Ox Interpretation: Normal Progress Note: Toradol IM given in the ED. Lumbar Spine x-ray is pending. 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 - Scribe Statement The provider has reviewed the documentation as recorded by the Scribe (Jeaneth Johnson) All medical record entries made by the Scribe were at my direction and personally dictated by me. I have reviewed the chart and agree that the record accurately reflects my personal performance of the history, physical exam, medical decision making, and the department course for this patient. I have also personally directed, reviewed, and agree with the discharge instructions and disposition.
--- NOTE | 2017-07-13 08:31 | RAD ---
PROCEDURE: Radiographs of the Lumbar Spine. HISTORY: pain to low back COMPARISON: No prior. FINDINGS: BONES: Normal alignment. No listhesis. No fracture. DISC SPACES: Unremarkable. OTHER FINDINGS: None. IMPRESSION: Unremarkable radiographs of the lumbar spine.
== END 2017-07-12 21:19 | disposition home or self-care (01) ==
LOC: C.ER 18:25
DX: M54.5 Low back pain (principal)
CPT/HCPCS: 72100; 96372; 99283; J1885

== ENCOUNTER 2018-01-14 08:35 | Emergency (ER) | payer OTHER ==
[2018-01-14 08:35] VITALS: BMI 21.2
[2018-01-14 08:47] VITALS: RESP 18; O2SAT 100
[2018-01-14 10:00] LABS: HCG,QUALITATIVE URINE NEGATIVE (NEGATIVE)
[2018-01-14 10:02] LABS: SQUAMOUS EPITHIAL 3 /hpf (0-5); URINE BACTERIA MOD (<OCC); URINE BILIRUBIN NEGATIVE (NEGATIVE); URINE BLOOD NEGATIVE (NEGATIVE); URINE CLARITY Hazy (Clear); URINE COLOR Yellow (YELLOW); URINE GLUCOSE (UA) NORMAL (Normal); URINE LEUKOCYTE ESTERASE TRACE Leu/uL (Negative); URINE PROTEIN NEGATIVE (NEGATIVE); URINE UROBILINOGEN NORMAL mg/dL (0.2-1.0)
--- NOTE | 2018-01-14 10:23 | C.PDOC ---
History Of Present Illness 22 y/o female, with no significant PMHx, presents to ED for evaluation of gradual development of left side chest and breast pain over the last few days. Pain is localized in the left anterior chest wall, and is worse with left arm movement. Pt admits to having similar symptoms few weeks ago which resolved spontaneously. Denies trauma, injury, fever, chills, palpitation, diaphoresis, shortness of breath, cough, wheezing, abdominal pain, nausea, vomiting, headache, or other associated symptoms at this time. <Dk Bustos - Last Filed: 01/14/18 10:33> <Samra Salvador - Last Filed: 01/14/18 10:20> <Dk Bustos - Last Filed: 01/14/18 10:33> Time Seen by Provider: 01/14/18 08:54 Chief Complaint (Nursing): Breast Problem Past Medical History Vital Signs: Last Vital Signs Temp 98.5 F 01/14/18 08:45 Pulse 88 01/14/18 08:45 Resp 18 01/14/18 08:45 BP 132/76 01/14/18 08:45 Pulse Ox 100 01/14/18 08:45 Surgical History: (x2) Family History: States: Unknown Family Hx - Social History Hx Tobacco Use: No Hx Alcohol Use: No Hx Substance Use: No - Immunization History Hx Tetanus Toxoid Vaccination: No Hx Influenza Vaccination: No Hx Pneumococcal Vaccination: No <Samra Salvador - Last Filed: 01/14/18 10:20> Vital Signs: Last Vital Signs Temp 98.5 F 01/14/18 08:45 Pulse 88 01/14/18 08:45 Resp 18 01/14/18 08:45 BP 132/76 01/14/18 08:45 Pulse Ox 100 01/14/18 10:24 <Dk Bustos - Last Filed: 01/14/18 10:33> ED Course And Treatment O2 Sat by Pulse Oximetry: 100 <Samra Salvador - Last Filed: 01/14/18 10:20> Disposition Counseled Patient/Family Regarding: Studies Performed, Diagnosis, Need For Followup - Disposition Disposition Time: 10:00 <Samra Salvador - Last Filed: 01/14/18 10:20> <Dk Bustos - Last Filed: 01/14/18 10:33> - Disposition Referrals: [facility] at [facility] [Outside] Disposition: HOME/ ROUTINE Condition: STABLE Additional Instructions: Light duty, avoid heavy lifting, or any physical activity for 1 week Take pain medication as prescribed follow up with PMD in 2-3 days for re-evaluation. return to ED if any worsening or new changes. Prescriptions: Ibuprofen [Motrin] 1 tab PO TID PRN #30 tab PRN Reason: Pain Methocarbamol [Robaxin] 500 mg PO TID #14 tab Instructions: Chest Pain Forms: [employer] (Sri Lankan) - Clinical Impression Clinical Impression: Chest pain
--- NOTE | 2018-01-14 10:40 | C.PDOC ---
History Of Present Illness 22 y/o female, with no significant PMHx, presents to ED for evaluation of gradual development of left side chest/ breast pain over the last few days. Pain is localized in the left anterior chest wall, reproducible, and is worse with left arm movement. Pt admits to having similar symptoms few weeks ago which resolved spontaneously. Denies trauma, injury, fever, chills, recent illness, palpitation, diaphoresis, shortness of breath, cough, wheezing, abd. pain, N/V, denies lower legs swelling, contraceptive use, smoking , denies recent prolong immobilization. Ambulate to Ed for evaluation, not in any apparent distress. Time Seen by Provider: 01/14/18 08:54 Chief Complaint (Nursing): Breast Problem History Per: Patient History/Exam Limitations: no limitations Onset/Duration Of Symptoms: Days Current Symptoms Are (Timing): Still Present Recent travel outside of the [place]: No Additional History Per: Patient Past Medical History Reviewed: Historical Data, Nursing Documentation, Vital Signs Vital Signs: Last Vital Signs Temp 98.5 F 01/14/18 08:45 Pulse 88 01/14/18 08:45 Resp 18 01/14/18 08:45 BP 132/76 01/14/18 08:45 Pulse Ox 100 01/14/18 08:45 - Medical History PMH: No Chronic Diseases Surgical History: (x2) Family History: States: Unknown Family Hx Denies: [place] (early), CAD (early) - Social History Hx Tobacco Use: No Hx Alcohol Use: No Hx Substance Use: No - Immunization History Hx Tetanus Toxoid Vaccination: No Hx Influenza Vaccination: No Hx Pneumococcal Vaccination: No Review Of Systems Except As Marked, All Systems Reviewed And Found Negative. Constitutional: Negative for: Fever, Chills Cardiovascular: Positive for: Chest Pain. Negative for: Palpitations, Orthopnea, Edema, Light Headedness Respiratory: Negative for: Cough, Shortness of Breath, Sputum, Wheezing Gastrointestinal: Negative for: Nausea, Vomiting, Abdominal Pain, Constipation Musculoskeletal: Negative for: Neck Pain, Back Pain Neurological: Negative for: Headache, Dizziness Physical Exam - Physical Exam Appears: Well, Non-toxic, No Acute Distress Skin: Normal Color, Warm, Dry, No Rash, No Ecchymosis Head: Normacephalic Eye(s): bilateral: PERRL Nose: No Flaring, No Discharge Oral Mucosa: Moist, No Drooling Tongue: Normal Appearing Lips: Normal Appearing Throat: No Erythema Neck: Normal ROM, Trachea Midline, Supple Chest: Symmetrical, No Deformity, Tenderness (reproducible tenderness to left anterior chest wall overlying pectoral muscle. No skin chages, no palpale deformity.), Other (no tenderness, erythema, skin hcanges, or palpable mass to left breast, no discharge from nipple ) Cardiovascular: Rhythm Regular, No Murmur, No JVD, Other ((-) carotid bruits B/l) Respiratory: No Accessory Muscle Use, No Rales, No Rhonchi, No Stridor, No Wheezing, No Plerual Rub Gastrointestinal/Abdominal: Soft, No Tenderness, No Distention, No Guarding, No Rebound Back: No CVA Tenderness Extremity: Normal ROM, No Pedal Edema, No Deformity, No Swelling Neurological/Psych: Oriented x3, Normal Speech ED Course And Treatment - Laboratory Results Urine POC: Negative ECG: Interpreted By Me, Viewed By Me ECG Rhythm: Sinus Bradycardia ECG Interpretation: Normal Rate From EC (bpm) O2 Sat by Pulse Oximetry: 100 (RA) Pulse Ox Interpretation: Normal - Radiology CXR: Interpreted by Me, Viewed By Me CXR Interpretation: Yes: No Acute Disease Progress Note: UA, CXR, EKG ordered and reviewed. Pt was given Motrin and Tramadol. On re-eval, pt is afebrile, hemodynamicaly stable. Non-toxic. PulsEOx 100% RA. ENT: No acute findings. neck: SUpple, (-) JVD, (-) carotid bruits B/l. Lungs: CTA B/L, BS equal B/L. CVS: (+)S1S2, reg, (-) murmur. Abd: benign. Neuorlogicaly intact. CXR, EKG- normal study. UA- normal. Pt has no risk factors for DVT/PE, denies B/L lower legs pain. Pt has clinical findings c/w Left sided chest pain, reproducible. Case discussed with ED attending, nazias with plan. Pt advised on course of ds. ref. to f/u with PMD in 1-2 days for re-eavl. return to ED at any time if any worsening or new changes. Pt udnerstand and agrees with discharges. Disposition Counseled Patient/Family Regarding: Diagnosis, Need For Followup - Disposition Referrals: [facility] at [facility] [Outside] Disposition: HOME/ ROUTINE Disposition Time: 10:01 Condition: STABLE Additional Instructions: Light duty, avoid heavy lifting, or any physical activity for 1 week Take pain medication as prescribed follow up with PMD in 2-3 days for re-evaluation. return to ED if any worsening or new changes. Prescriptions: Ibuprofen [Motrin] 1 tab PO TID PRN #30 tab PRN Reason: Pain Methocarbamol [Robaxin] 500 mg PO TID #14 tab Instructions: Chest Pain Forms: [employer] (Japanese) - Clinical Impression Clinical Impression: Chest pain - PA / COLLATOR HAND / Resident Statement MD/DO has reviewed & agrees with the documentation as recorded. - Scribe Statement The provider has reviewed the documentation as recorded by the Scribe KP All medical record entries made by the Scribe were at my direction and per sonally dictated by me. I have reviewed the chart and agree that the record accurately reflects my personal performance of the history, physical exam, medical decision making, and the department course for this patient. I have also personally directed, reviewed, and agree with the discharge instructions and disposition.
[2018-01-14 10:51] VITALS: BP 90/57; PULSE 64; TEMP 98.1
--- NOTE | 2018-01-14 14:44 | RAD ---
Date of service: 01/14/2018 HISTORY: pain COMPARISON: No prior. TECHNIQUE: Chest PA and lateral FINDINGS: LUNGS: No active pulmonary disease. There is a small nodular density right lower lung field that could represent vessel on end artifact however small nodule or granuloma not excluded. PLEURA: No significant pleural effusion identified. No pneumothorax apparent. CARDIOVASCULAR: Normal. OSSEOUS STRUCTURES: No significant abnormalities. VISUALIZED UPPER ABDOMEN: Normal. OTHER FINDINGS: None. IMPRESSION: No active disease.
--- NOTE | 2018-01-16 22:22 | CARD ---
APPROVED REPORT Date of service: 01/14/2018 EKG Measurement Heart [id number] <Conclusion> Sinus bradycardia with sinus arrhythmia Otherwise normal ECG
== END 2018-01-14 11:03 | disposition home or self-care (01) ==
LOC: C.ER 08:35
DX: R07.9 Chest pain, unspecified (principal)

== ENCOUNTER 2018-01-15 02:52 | Emergency (ER) | payer SELFPAY ==
[2018-01-15 02:52] VITALS: BMI 21.2
[2018-01-15 03:14] VITALS: RESP 16
--- NOTE | 2018-01-15 04:03 | C.PDOC ---
History Of Present Illness 22 yo female with no PMH c/o left sided chest/breast pain for 2 days. Notes the pain is left sided, radiates to her shoulder. Pain is worse with movement of the left arm or when she lays on that side. Pt was evaluated earlier today for the same symptoms, had a negative XR but symptoms persist. Notes she also had a similar episode last week that resolved on its own. Denies trauma, fever, palpitations, sob, cough, abdominal pain, n/v, leg swelling, control use, or travel. Notes she "sometimes" smokes. Time Seen by Provider: 01/15/18 03:08 Chief Complaint (Nursing): Chest Pain History Per: Patient History/Exam Limitations: no limitations Onset/Duration Of Symptoms: Days Current Symptoms Are (Timing): Still Present Exacerbating Factors: Movement, Deep Breathing Past Medical History Vital Signs: Last Vital Signs Temp 98.8 F 01/15/18 03:06 Pulse 59 L 01/15/18 03:06 Resp 16 01/15/18 03:06 BP 103/66 01/15/18 03:06 Pulse Ox 100 01/15/18 03:06 Surgical History: (x2) Family History: States: Unknown Family Hx - Social History Hx Tobacco Use: No Hx Alcohol Use: No Hx Substance Use: No - Immunization History Hx Tetanus Toxoid Vaccination: Yes Hx Influenza Vaccination: Yes Hx Pneumococcal Vaccination: Yes Review Of Systems Except As Marked, All Systems Reviewed And Found Negative. Cardiovascular: Positive for: Chest Pain Physical Exam - Physical Exam Appears: Well, Non-toxic, No Acute Distress Skin: Normal Color, Warm, Dry Head: Atraumatic, Normacephalic Eye(s): bilateral: Normal Inspection, EOMI Nose: Normal Oral Mucosa: Moist Throat: Normal, No Erythema, No Exudate, No Drooling Neck: Normal, Normal ROM, Supple Chest: Symmetrical, No Deformity, Tenderness ((+) digital reproducible te nderness to left anterior chest wall/ left breast. No skin changes. No swelling or erythema to the breast or nipple discharge) Cardiovascular: Rhythm Regular, No Murmur, No JVD Respiratory: Normal Breath Sounds, No Accessory Muscle Use Gastrointestinal/Abdominal: Normal Exam, Soft, No Tenderness Back: Normal Inspection Extremity: Normal ROM Neurological/Psych: Oriented x3, Normal Speech, Normal Cognition ED Course And Treatment - Laboratory Results Result Diagrams: 01/15/18 04:32 01/15/18 04:32 ECG: Interpreted By Me (Dr Chris), Viewed By Me ECG Rhythm: Sinus Bradycardia, Nonspecific Changes Rate From EC O2 Sat by Pulse Oximetry: 100 (RA) Progress Note: Toradol ordered. XR WNL from yesterday. On re-evaluation, pt is sleeping. Upon wakening, pt notes pain improved. no sob. afebrile. Tolerating po. labs wnl. Pulse Ox 98% RA. Neck supple. No carotid bruits. No JVD. Lungs CTA. Pt instructed to f/u with PMD in 1-2 days or return to ED at any time if any persists or worsening. Silk Trimmer used to ensure understanding. Discussed return precautions. Case discussed with Dr Chris, agreed upon plan and discharge. Disposition - Disposition Disposition: HOME/ ROUTINE Disposition Time: 05:54 Condition: STABLE Additional Instructions: Follow up with your doctor in 1-2 days. Return to ER if symptoms persist or worsen. Instructions: Pleuritic Chest Pain (DC) Forms: [employer] (Georgian) Print Language: YEMENI - Clinical Impression Clinical Impression: Chest pain
[2018-01-15 04:36] LABS: BASO # 0.1 K/uL (0.0-0.2); BASO % 0.7 % (0.0-2.0); EOS # 0.3 K/uL (0.0-0.7); EOS % 2.4 % (0.0-4.0); HEMOGLOBIN 13.4 g/dL (11.0-16.0); LYMPH # 4.1 K/uL (1.0-4.3); LYMPH % 36.1 % (20.0-40.0); MEAN CELL VOLUME 80.8 fL (81.0-99.0); MEAN CORPUSCULAR HEMOGLOBIN 26.7 pg (27.0-31.0); MEAN CORPUSCULAR HGB CONC 33.1 g/dL (33.0-37.0); MEAN PLATELET VOLUME 8.5 fL (7.2-11.7); MONO # 0.7 K/uL (0.0-0.8); MONO % 6.5 % (0.0-10.0); NEUT # 6.2 K/uL (1.8-7.0); NEUT % 54.3 % (50.0-75.0); NRBC % 0.1 % (0.0-2.0); RED CELL DISTRIBUTION WIDTH 14.3 % (11.5-14.5); WHITE BLOOD COUNT 11.4 K/uL (4.8-10.8)
[2018-01-15 04:48] LABS: ALB/GLOB RATIO 1.6 (1.0-2.1); ALBUMIN 3.8 g/dL (3.5-5.0); ALT/SGPT 40 U/L (9-52); AST/SGOT 24 U/L (14-36); BLOOD UREA NITROGEN 14 mg/dL (7-17); CALCIUM 8.7 mg/dl (8.6-10.4); GFR NON-AFRICAN AMERICAN > 60
[2018-01-15 05:46] LABS: CK-MB < 0.22 ng/mL (0.0-3.38)
[2018-01-15 06:06] VITALS: BP 104/65; PULSE 65; TEMP 98
[2018-01-15 06:20] VITALS: O2SAT 100
== END 2018-01-15 06:37 | disposition home or self-care (01) ==
LOC: C.ER 02:52
DX: R07.9 Chest pain, unspecified (principal)
CPT/HCPCS: 80053; 82550; 82553; 84484; 85025; 85378; 93005; 96374; 99284; J1885

== ENCOUNTER 2018-03-16 23:01 | Emergency (ER) | payer SELFPAY ==
[2018-03-16 23:02] VITALS: BMI 21.2
[2018-03-16 23:12] VITALS: RESP 20; O2SAT 98
[2018-03-17] MEDS ORDERED: Alum-Mag Hydrox-Simethicone Susp (30 mL) PO STA (00:03)
[2018-03-17] MEDS ORDERED: Alum-Mag Hydrox-Simethicone Susp (30 mL) ONE (00:13)
--- NOTE | 2018-03-17 00:18 | C.PDOC ---
History Of Present Illness 23 year old female presents to the ED c/o abdominal pain associated with 2 episodes of vomiting for the past 2 days. Patient also reports having dysuria and some questionable vaginal discharged associated with it. Patient's LMP was 02/25/18. Patient denies fever, chills, diarrhea, rash, back pain, hematuria, recent travel, sick contacts. Time Seen by Provider: 03/16/18 23:28 Chief Complaint (Nursing): Abdominal Pain History Per: Patient History/Exam Limitations: no limitations Onset/Duration Of Symptoms: Days (2) Current Symptoms Are (Timing): Still Present Location Of Pain/Discomfort: Diffuse Quality Of Discomfort: "Pain" Associated Symptoms: Vomiting, Urinary Symptoms. denies: Fever, Chills, Mariola rrhea, Constipation Alleviating Factors: None Recent travel outside of the [place]: No Additional History Per: Patient Abnormal Vaginal Bleeding: No Last Menstral Period: 02/25/18 Past Medical History Reviewed: Historical Data, Nursing Documentation, Vital Signs Vital Signs: Last Vital Signs Temp 97.7 F 03/16/18 23:09 Pulse 60 03/16/18 23:09 Resp 20 03/16/18 23:09 BP 124/80 03/16/18 23:09 Pulse Ox 98 03/16/18 23:09 - Medical History PMH: No Chronic Diseases Surgical History: (x2) Family History: Denies: [place] (early), CAD (early) - Social History Hx Tobacco Use: No Hx Alcohol Use: Yes Hx Substance Use: No - Immunization History Hx Tetanus Toxoid Vaccination: Yes Hx Influenza Vaccination: Yes Hx Pneumococcal Vaccination: Yes Review Of Systems Constitutional: Negative for: Fever, Chills Cardiovascular: Negative for: Chest Pain Respiratory: Negative for: Shortness of Breath Gastrointestinal: Positive for: Vomiting, Abdominal Pain. Negative for: Nausea, Diarrhea Genitourinary: Positive for: Dysuria Musculoskeletal: Negative for: Back Pain Skin: Negative for: Rash Neurological: Negative for: Weakness, Numbness, Headache, Dizziness Physical Exam - Physical Exam Appears: Non-toxic, No Acute Distress Skin: Normal Color, Warm, Dry Head: Atraumatic, Normacephalic Eye(s): bilateral: Normal Inspection, PERRL, EOMI Oral Mucosa: Moist Neck: Normal ROM, Supple Chest: Symmetrical Cardiovascular: Rhythm Regular Respiratory: Normal Breath Sounds, No Rales, No Rhonchi, No Wheezing Gastrointestinal/Abdominal: Soft, Tenderness (diffuse), No Guarding, No Rebound Back: No CVA Tenderness Extremity: Normal ROM, No Tenderness, No Swelling Neurological/Psych: Oriented x3, Normal Speech, Normal Cognition Gait: Steady ED Course And Treatment O2 Sat by Pulse Oximetry: 98 (ON RA) Pulse Ox Interpretation: Normal Medical Decision Making Medical Decision Making: Plan: * Maalox 30 ml PO * Lidocaine 15 ml PO * Zofran 4 mg PO * UA 01:45 - Discussed results with patient, patient will be treated and discharged with instructions for UTI. Patient was advised to follow up with PMD Disposition Counseled Patient/Family Regarding: Studies Performed, Diagnosis, Need For Followup - Disposition Referrals: [facility] [Outside] [facility] [Outside] Disposition: HOME/ ROUTINE Disposition Time: 01:26 Condition: STABLE Prescriptions: Nitrofurantoin Macrocrystals [Macrobid] 100 mg PO BID #14 cap Instructions: Urinary Tract Infection, Adult (DC), Nausea and Vomiting, Adult (DC) Forms: [employer] (Salvadorean) Print Language: SOUTH SUDANESE - POA Present On Arrival: None - Clinical Impression Clinical Impression: Urinary tract infection, Vomiting - Scribe Statement The provider has reviewed the documentation as recorded by the Scribe Juan Woo All medical record entries made by the Scribe were at my direction and personally dictated by me. I have reviewed the chart and agree that the record accurately reflects my personal performance of the history, physical exam, medical decision making, and the department course for this patient. I have also personally directed, reviewed, and agree with the discharge instructions and disposition.
[2018-03-17 00:43] LABS: SQUAMOUS EPITHIAL 14 /hpf (0-5); URINE BACTERIA RARE (<OCC); URINE BILIRUBIN NEGATIVE (NEGATIVE); URINE BLOOD 1+ (NEGATIVE); URINE CALCIUM OXALATE CRYSTALS FEW /hpf (<OCC); URINE CLARITY Hazy (Clear); URINE COLOR Yellow (YELLOW); URINE GLUCOSE (UA) NORMAL (Normal); URINE LEUKOCYTE ESTERASE NEG Leu/uL (Negative); URINE PROTEIN NEGATIVE (NEGATIVE)
[2018-03-17 01:55] VITALS: BP 121/68; PULSE 81; TEMP 97.6
== END 2018-03-17 01:55 | disposition home or self-care (01) ==
LOC: C.ER 23:01
DX: N39.0 Urinary tract infection, site not specified (principal); R11.10 Vomiting, unspecified

== ENCOUNTER 2018-04-13 21:34 | Emergency (ER) | payer SELFPAY ==
[2018-04-13 21:35] VITALS: BMI 21.2
[2018-04-13 21:46] VITALS: TEMP 98.2; O2SAT 100
--- NOTE | 2018-04-13 21:56 | C.PDOC ---
History Of Present Illness 23 year old female presents to the ED c/o abdominal pain and nausea. Patient reports she drank grape juice. Patient states after which she had numerous episodes of vomiting and decreased PO intake. Patient denies fever, chills, diarrhea, back pain, dysuria, hematuria, CP, SOB. Time Seen by Provider: 04/13/18 21:56 Chief Complaint (Nursing): Abdominal Pain History Per: Patient History/Exam Limitations: no limitations Onset/Duration Of Symptoms: Hrs Current Symptoms Are (Timing): Still Present Context: Food Location Of Pain/Discomfort: Epigastric Quality Of Discomfort: "Pain" Associated Symptoms: Nausea, Vomiting, Loss Of Appetite. denies: Diarrhea, Urinary Symptoms Exacerbating Factors: Food Recent travel outside of the [place]: No Additional History Per: Patient Abnormal Vaginal Bleeding: No Past Medical History Reviewed: Historical Data, Nursing Documentation, Vital Signs Vital Signs: Last Vital Signs Temp 98.2 F 04/13/18 21:38 Pulse 74 04/13/18 21:38 Resp 18 04/13/18 21:38 BP 124/74 04/13/18 21:38 Pulse Ox 100 04/13/18 21:38 - Medical History PMH: No Chronic Diseases Surgical History: (x2) Family History: States: Unknown Family Hx Denies: [place] (early), CAD (early) - Social History Hx Tobacco Use: No Hx Alcohol Use: Yes Hx Substance Use: No - Immunization History Hx Tetanus Toxoid Vaccination: No Hx Influenza Vaccination: No Hx Pneumococcal Vaccination: No Review Of Systems Constitutional: Negative for: Fever, Chills Cardiovascular: Negative for: Chest Pain Respiratory: Negative for: Cough, Shortness of Breath Gastrointestinal: Positive for: Nausea, Vomiting, Abdominal Pain. Negative for: Diarrhea Genitourinary: Negative for: Dysuria, Hematuria Skin: Negative for: Rash Neurological: Negative for: Weakness, Numbness Physical Exam - Physical Exam Appears: Non-toxic, No Acute Distress Skin: Warm, Dry Head: Normacephalic Eye(s): bilateral: Normal Inspection Oral Mucosa: Moist Neck: Supple Chest: Symmetrical Cardiovascular: Rhythm Regular Respiratory: No Rales, No Rhonchi, No Wheezing Gastrointestinal/Abdominal: Soft, Tenderness (epigastric), No Guarding, No Rebound Extremity: Bilateral: Atraumatic, Normal Color And Temperature, Normal ROM Neurological/Psych: Oriented x3, Normal Speech, Normal Cognition Gait: Steady ED Course And Treatment O2 Sat by Pulse Oximetry: 100 (ON RA) Pulse Ox Interpretation: Normal Progress Note: Plan: - Zofran 4 mg PO. pt tolerating po. feels much better. wants to go home Reevaluation Time: 00:28 Reassessment Condition: Improved Disposition Counseled Patient/Family Regarding: Studies Performed, Diagnosis, Need For Followup, Rx Given - Disposition Referrals: [facility] [Outside] [facility] [Outside] Disposition: HOME/ ROUTINE Disposition Time: 21:56 Condition: FAIR Additional Instructions: Please return if symptoms recur Prescriptions: Ondansetron ODT [Zofran ODT] 1 odt PO BID PRN #6 odt PRN Reason: Nausea/Vomiting Instructions: Food Poisoning (DC), Nausea and Vomiting, Adult (DC) Forms: [employer] (Burmese) Print Language: MALDIVIAN - Clinical Impression Clinical Impression: Nausea, Vomiting, Food poisoning - Scribe Statement The provider has reviewed the documentation as recorded by the Scribkamille Woo All medical record entries made by the Scribe were at my direction and personally dictated by me. I have reviewed the chart and agree that the record accurately reflects my personal performance of the history, physical exam, medical decision making, and the department course for this patient. I have also personally directed, reviewed, and agree with the discharge instructions and disposition.
[2018-04-13] MEDS: Sodium Chloride 0.9% 1,000 ML IV ONE (23:37)
[2018-04-14 00:41] VITALS: BP 112/72; PULSE 68; RESP 20
== END 2018-04-14 00:40 | disposition home or self-care (01) ==
LOC: C.ER 21:34
DX: T62.91XA Toxic effect of unspecified noxious substance eaten as food, accidental (unintentional), initial encounter (principal); R11.2 Nausea with vomiting, unspecified
CPT/HCPCS: 96361; 96374; 99285; J2405; J7030

== ENCOUNTER 2018-08-22 20:01 | Emergency (ER) | payer SELFPAY ==
[2018-08-22 20:01] VITALS: BMI 21.2
[2018-08-22 20:28] VITALS: BP 122/87; PULSE 77; RESP 20; TEMP 99; O2SAT 100
[2018-08-22 21:01] LABS: SQUAMOUS EPITHIAL 2 /hpf (0-5); URINE BACTERIA RARE (<OCC); URINE BILIRUBIN NEGATIVE (NEGATIVE); URINE BLOOD 1+ (NEGATIVE); URINE CLARITY Clear (Clear); URINE COLOR Straw (YELLOW); URINE GLUCOSE (UA) NORMAL (Normal); URINE LEUKOCYTE ESTERASE NEG Leu/uL (Negative); URINE PROTEIN NEGATIVE (NEGATIVE); URINE UROBILINOGEN NORMAL mg/dL (0.2-1.0)
[2018-08-22 22:29] LABS: BASO # 0.1 K/uL (0.0-0.2); BASO % 0.5 % (0.0-2.0); EOS # 0.1 K/uL (0.0-0.7); HEMOGLOBIN 12.5 g/dL (11.0-16.0); LYMPH # 3.8 K/uL (1.0-4.3); LYMPH % 33.3 % (20.0-40.0); MEAN CELL VOLUME 79.3 fL (81.0-99.0); MEAN CORPUSCULAR HEMOGLOBIN 26.3 pg (27.0-31.0); MEAN CORPUSCULAR HGB CONC 33.2 g/dL (33.0-37.0); MONO # 0.8 K/uL (0.0-0.8); MONO % 6.8 % (0.0-10.0); NEUT # 6.6 K/uL (1.8-7.0); NEUT % 58.4 % (50.0-75.0); RBC 4.76 Mil/uL (3.80-5.20); RED CELL DISTRIBUTION WIDTH 13.8 % (11.5-14.5); WHITE BLOOD COUNT 11.3 K/uL (4.8-10.8)
[2018-08-22 22:38] LABS: BLOOD UREA NITROGEN 10 mg/dL (7-17); CALCIUM 9.1 mg/dl (8.6-10.4); GFR NON-AFRICAN AMERICAN > 60
--- NOTE | 2018-08-22 23:15 | C.PDOC ---
History Of Present Illness 23 year old female presents to the ED c/o suprapubic abdominal pain for the past 3-4 days. Patient reports she is late for her period, took several home tests that were positive. Patient reports she has past history of ecto pic which concerned her. Patient denies fever, chills, nausea, vomit, dysuria, hematuria, rash, back pain. Time Seen by Provider: 08/22/18 20:35 Chief Complaint (Nursing): Abdominal Pain History Per: Patient History/Exam Limitations: no limitations Onset/Duration Of Symptoms: Days (3-4) Current Symptoms Are (Timing): Still Present Location Of Pain/Discomfort: Suprapubic Radiation Of Pain To:: None Quality Of Discomfort: "Pain" Associated Symptoms: denies: Nausea, Vomiting, Diarrhea, Urinary Symptoms Recent travel outside of the [place]: No Additional History Per: Patient Abnormal Vaginal Bleeding: No Last Menstral Period: 07/06/18 Past Medical History Reviewed: Historical Data, Nursing Documentation, Vital Signs Vital Signs: Last Vital Signs Temp 99 F 08/22/18 20:23 Pulse 77 08/22/18 20:23 Resp 20 08/22/18 20:23 BP 122/87 08/22/18 20:23 Pulse Ox 100 08/22/18 20:23 Primary Care Provider: FAMILY PROVIDER,NO - Medical History PMH: No Chronic Diseases Surgical History: (x2) Family History: States: Unknown Family Hx Denies: [place] (early), CAD (early) - Social History Hx Tobacco Use: No Hx Alcohol Use: Yes Hx Substance Use: No - Immunization History Hx Tetanus Toxoid Vaccination: No Hx Influenza Vaccination: No Hx Pneumococcal Vaccination: No Review Of Systems Constitutional: Negative for: Fever, Chills, Weakness ENT: Negative for: Mouth Swelling Respiratory: Negative for: Cough, Shortness of Breath Gastrointestinal: Positive for: Abdominal Pain. Negative for: Nausea, Vomiting, Diarrhea Genitourinary: Negative for: Dysuria, Hematuria Musculoskeletal: Negative for: Back Pain Skin: Negative for: Rash Neurological: Negative for: Weakness, Numbness Physical Exam - Physical Exam Appears: Well, Non-toxic, No Acute Distress Skin: Normal Color, Warm, Dry, No Rash Head: Atraumatic, Normacephalic Eye(s): bilateral: Normal Inspection, PERRL, EOMI Nose: Normal Oral Mucosa: Moist Neck: Normal ROM, Supple Chest: Symmetrical Cardiovascular: Rhythm Regular Respiratory: No Accessory Muscle Use, Other (normal inspiratory effort) Gastrointestinal/Abdominal: Soft, Tenderness (suprapubic), No Guarding, No Rebound Pelvic: Vaginal Discharge (white frotty in the vault, no odor), Cervical Motion Tenderness, No Cervix Open, No Adnexal Tenderness, Tender Uterus, Other (CHaperoned by female RN) Extremity: Bilateral: Atraumatic, Normal ROM Neurological/Psych: Oriented x3, Normal Speech Gait: Steady ED Course And Treatment - Laboratory Results Result Diagrams: 08/22/18 22:22 08/22/18 22:22 Lab Results: Urine Color Straw (YELLOW) 08/22/18 20:56 Urine Clarity Clear (Clear) 08/22/18 20:56 Urine pH 6.0 (5.0-8.0) 08/22/18 20:56 Ur Specific [place] 1.006 (1.003-1.030) 08/22/18 20:56 Urine Protein Negative mg/dL (NEGATIVE) 08/22/18 20:56 Urine Glucose (UA) Normal mg/dL (Normal) 08/22/18 20:56 Urine Ketones Negative mg/dL (NEGATIVE) 08/22/18 20:56 Urine Blood 1+ (NEGATIVE) H 08/22/18 20:56 Urine Nitrate Negative (NEGATIVE) 08/22/18 20:56 Urine Bilirubin Negative (NEGATIVE) 08/22/18 20:56 Urine Urobilinogen Normal mg/dL (0.2-1.0) 08/22/18 20:56 Ur Leukocyte Esterase Neg Ivnone/uL (Negative) 08/22/18 20:56 Urine WBC (Auto) < 1 /hpf (0-5) 08/22/18 20:56 Urine RBC (Auto) < 1 /hpf (0-3) 08/22/18 20:56 Ur Squamous Epith Cells 2 /hpf (0-5) 08/22/18 20:56 Urine Bacteria Rare (<OCC) 08/22/18 20:56 Beta HCG, Quant 15.53 mIU/ML 08/22/18 22:22 O2 Sat by Pulse Oximetry: 100 (ON RA) Pulse Ox Interpretation: Normal Medical Decision Making Medical Decision Making: Patient eloped prior to completion of treatment Disposition - Disposition Disposition: ELOPEMENT - ER ONLY Disposition Time: 23:15 Condition: STABLE Forms: [employer] (Bengali) - Clinical Impression Clinical Impression: Suprapubic pain, Abdominal pain 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 - Scribe Statement The provider has reviewed the documentation as recorded by the Scribe Juan Woo All medical record entries made by the Scribe were at my direction and personally dictated by me. I have reviewed the chart and agree that the record accurately reflects my personal performance of the history, physical exam, medical decision making, and the department course for this patient. I have also personally directed, reviewed, and agree with the discharge instructions and disposition.
== END 2018-08-23 01:00 | disposition left against medical advice (07) ==
LOC: C.ER 20:01
DX: O26.891 Other specified pregnancy related conditions, first trimester (principal); R10.30 Lower abdominal pain, unspecified; Z3A.00 Weeks of gestation of pregnancy not specified

== ENCOUNTER 2018-08-22 23:28 | Emergency (ER) | payer SELFPAY ==
[2018-08-22 23:28] VITALS: BMI 21.2
--- NOTE | 2018-09-13 06:43 | C.PDOC ---
History Of Present Illness 23 year old female presents to the ED c/o suprapubic abdominal pain for the past 3-4 days. Patient reports she is late for her period, took several home tests that were positive. Patient reports she has past history of ectopic which concerned her. Patient denies fever, chills, nausea, vomit, dysuria, hematuria, rash, back pain. History Per: Patient History/Exam Limitations: no limitations Onset/Duration Of Symptoms: Days (3-4) Current Symptoms Are (Timing): Still Present Location Of Pain/Discomfort: Suprapubic Radiation Of Pain To:: None Quality Of Discomfort: "Pain" Associated Symptoms: denies: Nausea, Vomiting, Diarrhea, Urinary Symptoms Recent travel outside of the [place]: No Abnormal Vaginal Bleeding: No Last Menstral Period: 07/06/18 Past Medical History Reviewed: Historical Data, Nursing Documentation, Vital Signs Surgical History: (x2) Family History: States: Unknown Family Hx Denies: [place] (early), CAD (early) - Social History Hx Tobacco Use: No Hx Alcohol Use: Yes Hx Substance Use: No - Immunization History Hx Tetanus Toxoid Vaccination: No Hx Influenza Vaccination: No Hx Pneumococcal Vaccination: No Review Of Systems Constitutional: Negative for: Fever, Chills, Weakness ENT: Negative for: Mouth Swelling Respiratory: Negative for: Cough, Shortness of Breath Gastrointestinal: Positive for: Abdominal Pain. Negative for: Nausea, Vomiting, Diarrhea Genitourinary: Negative for: Dysuria, Hematuria Musculoskeletal: Negative for: Back Pain Skin: Negative for: Rash Neurological: Negative for: Weakness, Numbness Physical Exam - Physical Exam Appears: Well, Non-toxic, No Acute Distress Skin: Normal Color, Warm, Dry, No Rash Head: Atraumatic, Normacephalic Eye(s): bilateral: Normal Inspection, PERRL, EOMI Nose: Normal Oral Mucosa: Moist Neck: Normal ROM, Supple Chest: Symmetrical Cardiovascular: Rhythm Regular Respiratory: No Accessory Muscle Use, Other (normal inspiratory effort) Gastrointestinal/Abdominal: Soft, Tenderness (suprapubic), No Guarding, No Rebound Pelvic: Vaginal Discharge (white frotty in the vault, odor), Cervical Motion Tenderness, No Cervix Open, No Adnexal Tenderness, Tender Uterus, Other (Chaperoned by female RN) Extremity: Bilateral: Atraumatic, Normal ROM Neurological/Psych: Oriented x3, Normal Speech Gait: Steady Medical Decision Making Medical Decision Making: Patient eloped prior to completion of treatment Disposition - Disposition Disposition: HOME/ ROUTINE Condition: GOOD - Clinical Impression 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 - Scribe Statement The provider has reviewed the documentation as recorded by the Scribe Juan Woo All medical record entries made by the Scribe were at my direction and personally dictated by me. I have reviewed the chart and agree that the record accurately reflects my personal performance of the history, physical exam, medical decision making, and the department course for this patient. I have also personally directed, reviewed, and agree with the discharge instructions and disposition.
== END 2018-08-23 01:00 | disposition home or self-care (01) ==
LOC: C.ER 23:28
DX: O26.891 Other specified pregnancy related conditions, first trimester (principal); Z3A.00 Weeks of gestation of pregnancy not specified

== ENCOUNTER 2018-08-25 17:26 | Emergency (ER) | payer SELFPAY ==
[2018-08-25 18:23] VITALS: BMI 22.1
[2018-08-25 18:26] VITALS: RESP 18
--- NOTE | 2018-08-25 19:23 | C.PDOC ---
History Of Present Illness 23 y/o female, , unknown gestational age, comes in to ED with brown vaginal discharge. Last menstrual period was July. Patient just found out shes in the ER 2days ago. Patient denies any dysuria, hematuria, abdominal pain, nausea, vomiting, fever, or other complaints. in er in nad. no abd pain. Time Seen by Provider: 08/25/18 18:32 Chief Complaint (Nursing): Female Genitourinary History Per: Patient History/Exam Limitations: no limitations Onset/Duration Of Symptoms: Days Current Symptoms Are (Timing): Still Present Past Medical History Reviewed: Historical Data, Nursing Documentation, Vital Signs Vital Signs: Last Vital Signs Temp 98.6 F 08/25/18 18:23 Pulse 84 08/25/18 18:23 Resp 18 08/25/18 18:23 BP 96/56 L 08/25/18 18:23 Pulse Ox 100 08/25/18 18:23 Primary Care Provider: FAMILY PROVIDER,NO Surgical History: (x2) Family History: States: No Known Family Hx Denies: [place] (early), CAD (early) - Social History Hx Tobacco Use: No Hx Alcohol Use: No Hx Substance Use: No - Immunization History Hx Tetanus Toxoid Vaccination: No Hx Influenza Vaccination: No Hx Pneumococcal Vaccination: No Review Of Systems Except As Marked, All Systems Reviewed And Found Negative. Constitutional: Negative for: Fever, Chills Gastrointestinal: Negative for: Nausea, Vomiting Genitourinary: Positive for: Vaginal Discharge (brown). Negative for: Dysuria, Hematuria, Vaginal Bleeding Physical Exam - Physical Exam Appears: Non-toxic, No Acute Distress Skin: Warm, Dry Head: Normacephalic Eye(s): bilateral: Normal Inspection Oral Mucosa: Moist Neck: Supple Chest: Symmetrical Cardiovascular: Rhythm Regular, No Murmur Respiratory: Normal Breath Sounds, No Rales, No Rhonchi, No Wheezing Gastrointestinal/Abdominal: Soft, No Tenderness Extremity: Bilateral: Atraumatic, Normal Color And Temperature, Normal ROM Neurological/Psych: Oriented x3, Normal Speech ED Course And Treatment - Laboratory Results Result Diagrams: 08/25/18 19:30 08/25/18 19:30 O2 Sat by Pulse Oximetry: 100 (RA) Pulse Ox Interpretation: Normal Medical Decision Making Medical Decision Making: Plan: --Labs --UA --Urine HCG --Transvaginal US pelvic miniaml bleeding, os clsoed. beta and ucg neg. ?miscarrage. will need outpt ob return precations adived Disposition - Disposition Referrals: Elise Elliott DO [Staff Provider] - Disposition: HOME/ ROUTINE Disposition Time: 21:00 Condition: GOOD Additional Instructions: follow up with obygn in next 1-2 days return to er with worsening. Instructions: Miscarriage, Dealing With Miscarriage, Vaginal Discharge in Adults Forms: [employer] (Puerto Rican) - Clinical Impression Clinical Impression: Vaginal discharge - Scribe Statement The provider has reviewed the documentation as recorded by the Scribe Stephanie Birch Provider Attestation: All medical record entries made by the Scribe were at my direction and person ally dictated by me. I have reviewed the chart and agree that the record accurately reflects my personal performance of the history, physical exam, medical decision making, and the department course for this patient. I have also personally directed, reviewed, and agree with the discharge instructions and disposition.
[2018-08-25 19:36] LABS: BASO # 0.1 K/uL (0.0-0.2); BASO % 0.5 % (0.0-2.0); EOS # 0.1 K/uL (0.0-0.7); EOS % 0.7 % (0.0-4.0); HEMOGLOBIN 13.4 g/dL (11.0-16.0); LYMPH # 3.2 K/uL (1.0-4.3); LYMPH % 27.8 % (20.0-40.0); MEAN CORPUSCULAR HEMOGLOBIN 26.5 pg (27.0-31.0); MEAN CORPUSCULAR HGB CONC 33.1 g/dL (33.0-37.0); MEAN PLATELET VOLUME 8.2 fL (7.2-11.7); MONO # 0.7 K/uL (0.0-0.8); MONO % 5.8 % (0.0-10.0); NEUT # 7.5 K/uL (1.8-7.0); NEUT % 65.2 % (50.0-75.0); RBC 5.07 Mil/uL (3.80-5.20); RED CELL DISTRIBUTION WIDTH 13.9 % (11.5-14.5); WHITE BLOOD COUNT 11.5 K/uL (4.8-10.8)
[2018-08-25 19:46] LABS: HCG,QUALITATIVE URINE NEGATIVE (NEGATIVE); SQUAMOUS EPITHIAL 12 /hpf (0-5); URINE BACTERIA RARE (<OCC); URINE BILIRUBIN NEGATIVE (NEGATIVE); URINE BLOOD 2+ (NEGATIVE); URINE CLARITY Hazy (Clear); URINE COLOR Yellow (YELLOW); URINE GLUCOSE (UA) NORMAL (Normal); URINE LEUKOCYTE ESTERASE NEG Leu/uL (Negative); URINE PROTEIN NEGATIVE (NEGATIVE); URINE UROBILINOGEN NORMAL mg/dL (0.2-1.0)
[2018-08-25 19:51] LABS: INR 1.1; PARTIAL THROMBOPLASTIN TIME 37.3 SECONDS (21-34); PROTHROMBIN TIME 12.5 SECONDS (9.7-12.2)
[2018-08-25 20:00] LABS: ALB/GLOB RATIO 1.3 (1.0-2.1); ALBUMIN 4.7 g/dL (3.5-5.0); ALT/SGPT 25 U/L (9-52); AST/SGOT 32 U/L (14-36); BLOOD UREA NITROGEN 14 mg/dL (7-17); CALCIUM 9.4 mg/dl (8.6-10.4); GFR NON-AFRICAN AMERICAN > 60
[2018-08-25 21:32] VITALS: BP 102/66; PULSE 56; TEMP 98.7
[2018-08-25 22:12] VITALS: O2SAT 100
--- NOTE | 2018-08-26 17:07 | US ---
Date of service: 08/25/2018 PROCEDURE: Pelvic ultrasound HISTORY: . Spotting. COMPARISON: Comparison made with prior study 07/31/2016 TECHNIQUE: Transabdominal/transvaginal sonographic evaluation of the pelvis performed. FINDINGS: The uterus is anteverted measuring approximately 7.6 x 3.6 x 4.1 cm.. There appears to be a small myometrial calcifications both located in the fundal region 1 measuring 2 mm and the other measuring 2.5 mm. Endometrium measures 0.7 cm. No evidence of intrauterine gestation. No free fluid seen in the cul sac. Right ovary measures approximately 2.9 x 1.8 x 2.1 cm and contains a small cyst measuring 1.1 x 1.2 x 1.3 cm. Right ovary exhibits arterial flow. Left ovary measures approximately 3.0 x 1.8 x 2.4 cm. Left ovary exhibits arterial flow. IMPRESSION: No evidence of intrauterine gestation. Note that the possibility of an ectopic cannot be excluded on this exam and therefore follow-up serial serum beta hCG and serial pelvic ultrasound recommended. Note that this report was placed in PA review folder for follow up. Small right ovarian cyst.
== END 2018-08-25 21:41 | disposition home or self-care (01) ==
LOC: C.ER 17:26
DX: N89.8 Other specified noninflammatory disorders of vagina (principal)